=== PATIENT | male | born 1975 | race Caucasian/White ===

== ENCOUNTER 2016-03-08 08:00 | Outpatient (CLI) | payer MEDICARE, MEDICAID | END 2016-03-08 08:01 | disposition home or self-care (01) | DX: Z79.01 Long term (current) use of anticoagulants (principal) ==

== ENCOUNTER 2016-03-15 07:45 | Outpatient (CLI) | payer MEDICARE, MEDICAID | END 2016-03-15 07:46 | disposition home or self-care (01) | DX: Z79.01 Long term (current) use of anticoagulants (principal) ==

== ENCOUNTER 2016-04-05 09:10 | Outpatient (CLI) | payer MEDICARE, MEDICAID | END 2016-04-05 09:11 | disposition home or self-care (01) | DX: Z79.01 Long term (current) use of anticoagulants (principal) ==

== ENCOUNTER 2016-04-12 08:00 | Outpatient (CLI) | payer MEDICARE, MEDICAID | END 2016-04-12 08:01 | disposition home or self-care (01) | DX: Z79.01 Long term (current) use of anticoagulants (principal) ==

== ENCOUNTER 2016-04-19 08:46 | Outpatient (CLI) | payer MEDICARE, MEDICAID | END 2016-04-19 08:47 | disposition home or self-care (01) | DX: Z79.01 Long term (current) use of anticoagulants (principal) ==

== ENCOUNTER 2016-04-26 08:54 | Outpatient (CLI) | payer MEDICARE, MEDICAID | END 2016-04-26 08:55 | disposition home or self-care (01) | DX: Z79.01 Long term (current) use of anticoagulants (principal) ==

== ENCOUNTER 2016-05-10 09:23 | Outpatient (CLI) | payer MEDICARE, MEDICAID | END 2016-05-10 09:24 | disposition home or self-care (01) | DX: Z79.01 Long term (current) use of anticoagulants (principal) ==

== ENCOUNTER 2016-05-17 08:49 | Outpatient (CLI) | payer MEDICARE, MEDICAID | END 2016-05-17 08:50 | disposition home or self-care (01) | DX: Z79.01 Long term (current) use of anticoagulants (principal) ==

== ENCOUNTER 2016-05-31 08:00 | Outpatient (CLI) | payer MEDICARE, MEDICAID | END 2016-05-31 08:01 | disposition home or self-care (01) | DX: Z79.01 Long term (current) use of anticoagulants (principal) ==

== ENCOUNTER 2016-06-21 08:00 | Outpatient (CLI) | payer MEDICARE, MEDICAID | END 2016-06-21 23:59 | DX: Z79.01 Long term (current) use of anticoagulants (principal); Z95.0 Presence of cardiac pacemaker ==

== ENCOUNTER 2016-07-22 08:00 | Outpatient (CLI) | payer MEDICARE, MEDICAID | END 2016-07-22 08:01 | disposition home or self-care (01) | LOC: LAB.N 08:00 | PROVIDERS: ATTEND Nurse Practitioner Gerontology | DX: Z79.01 Long term (current) use of anticoagulants (principal) | CPT/HCPCS: 85610 ==

== ENCOUNTER 2016-08-01 10:30 | Outpatient (CLI) | payer MEDICARE, MEDICAID | END 2016-08-01 10:31 | disposition home or self-care (01) | LOC: LAB.N 10:30 | PROVIDERS: ATTEND Nurse Practitioner Gerontology | DX: Z79.01 Long term (current) use of anticoagulants (principal) | CPT/HCPCS: 85610 ==

== ENCOUNTER 2016-08-15 08:00 | Outpatient (CLI) | payer MEDICARE, MEDICAID | END 2016-08-15 08:01 | disposition home or self-care (01) | LOC: LAB.N 08:00 | PROVIDERS: ATTEND Nurse Practitioner Gerontology | DX: Z79.01 Long term (current) use of anticoagulants (principal) | CPT/HCPCS: 85610 ==

== ENCOUNTER 2016-09-09 08:00 | Outpatient (CLI) | payer MEDICARE, MEDICAID | END 2016-09-09 08:01 | disposition home or self-care (01) | LOC: LAB.N 08:00 | PROVIDERS: ATTEND Nurse Practitioner Gerontology | DX: Z79.01 Long term (current) use of anticoagulants (principal) | CPT/HCPCS: 85610 ==

== ENCOUNTER 2016-09-16 07:51 | Outpatient (CLI) | payer MEDICARE, MEDICAID | END 2016-09-16 07:52 | LOC: LAB.N 07:51 | PROVIDERS: ATTEND Nurse Practitioner Gerontology | DX: Z79.01 Long term (current) use of anticoagulants (principal) | CPT/HCPCS: 85610 ==

== ENCOUNTER 2016-09-30 08:50 | Outpatient (CLI) | payer MEDICARE, MEDICAID | END 2016-09-30 08:51 | disposition home or self-care (01) | LOC: LAB.N 08:50 | PROVIDERS: ATTEND Nurse Practitioner Gerontology | DX: Z79.01 Long term (current) use of anticoagulants (principal) | CPT/HCPCS: 85610 ==

== ENCOUNTER 2016-10-07 14:03 | Outpatient (CLI) | payer MEDICARE, MEDICAID | END 2016-10-07 14:04 | LOC: LAB.N 14:03 | PROVIDERS: ATTEND Nurse Practitioner Gerontology | DX: Z79.01 Long term (current) use of anticoagulants (principal) | CPT/HCPCS: 85610 ==

== ENCOUNTER 2016-10-14 08:00 | Outpatient (CLI) | payer MEDICARE, MEDICAID | END 2016-10-14 08:01 | disposition home or self-care (01) | LOC: LAB.N 08:00 | PROVIDERS: ATTEND Nurse Practitioner Gerontology | DX: Z79.01 Long term (current) use of anticoagulants (principal); Z95.0 Presence of cardiac pacemaker | CPT/HCPCS: 85610 ==

== ENCOUNTER 2016-10-28 07:35 | Outpatient (CLI) | payer MEDICARE, MEDICAID | END 2016-10-28 07:36 | LOC: LAB.N 07:35 | DX: Z79.01 Long term (current) use of anticoagulants (principal); Z95.0 Presence of cardiac pacemaker | CPT/HCPCS: 85610 ==

== ENCOUNTER 2016-11-01 06:59 | Outpatient (CLI) | payer MEDICARE, MEDICAID ==
[2016-11-01 08:17] LABS: BILIRUBIN,URINE NEGATIVE (NEGATIVE)
[2016-11-01 08:24] LABS: BASOPHILS # (AUTO) 0.1 10^3/uL (0.0-0.1); BASOPHILS % (AUTO) 1.3 %; EOSINOPHILS # (AUTO) 0.2 10^3/uL (0.0-0.7); EOSINOPHILS % (AUTO) 2.7 %; HCT - HEMATOCRIT 49.7 % (42.0-52.0); HGB - HEMOGLOBIN 16.9 g/dL (14.0-18.0); LYMPHOCYTES # (AUTO) 1.8 10^3/uL (1.5-3.5); LYMPHOCYTES % (AUTO) 30.2 %; MEAN CORPUSCULAR HEMOGLOBIN 29.4 pg (27.0-31.0); MEAN CORPUSCULAR VOLUME 86.3 fL (80.0-94.0); MONOCYTES # (AUTO) 0.5 10^3/uL (0.0-1.0); MONOCYTES % (AUTO) 8.7 %; NEUTROPHILS # (AUTO) 3.5 10^3/uL (1.5-6.6); NEUTROPHILS % (AUTO) 57.1 %; NUCLEATED RED BLOOD CELLS AUTO 0.1 /100WBC; RED BLOOD COUNT 5.76 10^6/uL (4.70-6.10); RED CELL DISTRIBUTION WIDTH 13.6 % (12.0-15.0); UNCORRECTED WHITE BLOOD COUNT 6.1 x10^3/uL; WHITE BLOOD COUNT 6.1 x10^3/uL (4.8-10.8)
[2016-11-01 08:45] LABS: BILIRUBIN,TOTAL 0.9 mg/dL (0.2-1.0); BUN - BLOOD UREA NITROGEN 17 mg/dL (6-20); CALCIUM 8.8 mg/dL (8.5-10.3); CARBON DIOXIDE - CO2 27 mmol/L (21-32); CHLORIDE 103 mmol/L (101-111); CHOL/HDL RATIO 4.9 (<5.0); CHOLESTEROL 181 mg/dL; CREATININE 0.9 mg/dL (0.6-1.2); GFR - MDRD 93 (>89); GLUCOSE 95 mg/dL (70-100); HDL CHOLESTEROL 37 mg/dL; LDL/HDL RATIO 3.1 (<3.6); POTASSIUM 4.1 mmol/L (3.5-5.0); SODIUM 138 mmol/L (135-145); TOTAL PROTEIN 7.6 g/dL (6.7-8.2); TRIGLYCERIDES 146 mg/dL; VLDL CHOLESTEROL 29 mg/dL
[2016-11-01 08:48] LABS: VBG PH 7.35 (7.31-7.41)
[2016-11-01 08:49] LABS: CALCIUM, IONIZED 1.15 mmol/L (1.15-1.33)
[2016-11-01 09:50] LABS: UA CHARGE (STRIP ONLY) YES
[2016-11-01 11:10] LABS: THYROID STIMULATING HORMONE 3.04 uIU/mL (0.34-5.60)
== END 2016-11-01 07:00 | disposition home or self-care (01) ==
LOC: LAB 06:59
DX: E66.01 Morbid (severe) obesity due to excess calories (principal); I10 Essential (primary) hypertension; F41.9 Anxiety disorder, unspecified; Z95.0 Presence of cardiac pacemaker; I82.90 Acute embolism and thrombosis of unspecified vein
CPT/HCPCS: 36415; 80053; 80061; 81001; 81003; 82330; 82607; 83735; 84425; 84443; 85025; 87086

== ENCOUNTER 2016-11-04 08:00 | Outpatient (CLI) | payer MEDICARE, MEDICAID | END 2016-11-04 08:01 | disposition home or self-care (01) | LOC: LAB.N 08:00 | PROVIDERS: ATTEND Nurse Practitioner Gerontology | DX: Z95.0 Presence of cardiac pacemaker (principal); Z79.01 Long term (current) use of anticoagulants | CPT/HCPCS: 85610 ==

== ENCOUNTER 2016-11-14 13:47 | Outpatient (CLI) | payer MEDICARE, MEDICAID | END 2016-11-14 13:48 | LOC: LAB.N 13:47 | PROVIDERS: ATTEND Nurse Practitioner Gerontology | DX: Z79.01 Long term (current) use of anticoagulants (principal); Z95.0 Presence of cardiac pacemaker | CPT/HCPCS: 85610 ==

== ENCOUNTER 2016-11-18 14:18 | Outpatient (CLI) | payer MEDICARE, MEDICAID | END 2016-11-18 14:19 | disposition home or self-care (01) | LOC: SC 14:18 | PROVIDERS: ATTEND Internal Medicine Pulmonary Disease | DX: G47.30 Sleep apnea, unspecified (principal); R06.83 Snoring | CPT/HCPCS: 99203; G0463; 99212 ==

== ENCOUNTER 2016-11-22 19:42 | Emergency (ER) | payer MEDICARE, MEDICAID ==
[2016-11-22 20:00] VITALS: BP 156/89
[2016-11-22 20:16] LABS: PH,URINE 5.5 PH (5.0-7.5)
[2016-11-22 20:19] LABS: BILIRUBIN,URINE NEGATIVE (NEGATIVE); UA w/ MICROSCOPIC CHARGE YES
[2016-11-22 20:28] LABS: UR CULTURE IF IND INDICATED; WBC,URINE >25 /HPF (0-3)
[2016-11-22] MEDS ORDERED: CIPROFLOXACIN 250 MG TABLET PO STA (20:37)
[2016-11-22] MEDS ORDERED: PHENAZOPYRIDINE 100 MG TABLET PO STA (20:37)
--- NOTE | 2016-11-22 20:39 | ED Physician Documentation ---
PD HPI MALE - Stated complaint Stated Complaint: MALE - Chief complaint Chief Complaint: General - History obtained from History obtained from: Patient, Family - History of Present Illness Timing - onset: Yesterday Timing - duration: Days (2) Timing - details: Gradual onset Pain level max: 5 Pain level now: 5 Associated symptoms: Dysuria, Urinary frequency. No: Hematuria, Discharge, Testiclar pain, Scrotal swelling, Abdominal pain PD HPI MALE CONTRIB FACTORS: Sexually active (same partner for 2+ years), Homosexual. No: Exposed to STD Similar symptoms before: Diagnosis (UTI) Recently seen: Not recently seen Review of Systems Constitutional: denies: Fever, Chills Ears: denies: Ear pain Nose: denies: Rhinorrhea / runny nose, Congestion Throat: denies: Sore throat Cardiac: denies: Chest pain / pressure Respiratory: denies: Cough GI: reports: Other (no pain with sitting or bowel movement). denies: Nausea, Vomiting, Constipation, Diarrhea : reports: Dysuria, Frequency, Hesitancy Skin: denies: Rash Musculoskeletal: denies: Neck pain, Back pain Neurologic: denies: Headache PD PAST MEDICAL HISTORY - Past Medical History Past Medical History: Yes Cardiovascular: Hypertension, Pulmonary embolism Other Past Medical History: blood disorder, heart burn - Past Surgical History Past Surgical History: Yes General: Cholecystectomy, Gastric surgery Cardiovascular: Pacemaker, Other - Present Medications Home Medications: Ambulatory Orders Medication Instructions Recorded Confirmed Omeprazole [PriLOSEC] 20 mg PO DAILY 07/01/15 11/22/16 Warfarin [Coumadin] 10 mg PO DAILY 07/01/15 11/22/16 amLODIPine [Norvasc] 5 mg PO DAILY 07/01/15 11/22/16 Ciprofloxacin HCl [Cipro] 500 mg PO BID #14 tablet 11/22/16 Hydrocodone/Acetaminophen 1 - 2 each PO Q6H PRN #14 tablet 11/22/16 [Hydrocodon-Acetaminophen 5-325] Phenazopyridine HCl [Pyridium] 200 mg PO TID PRN #6 tablet 11/22/16 - Allergies Allergies/Adverse Reactions: Allergies Allergy/AdvReac Type Severity Reaction Status Date / Time No Known Drug Allergies Allergy Verified 11/22/16 20:00 - Social History Does the pt smoke?: Yes Smoking Status: Current every day smoker Does the pt drink ETOH?: No Does the pt have substance abuse?: No - Immunizations Immunizations are current?: Yes - POLST Patient has POLST: No PD ED PE NORMAL - Vitals Vital signs reviewed: Yes - General General: Alert and oriented X 3, No acute distress, Well developed/nourished - HEENT HEENT: Moist mucous membranes - Neck Neck: Supple, no meningeal sign - Cardiac Cardiac: RRR, Strong equal pulses - Respiratory Respiratory: No respiratory distress, Clear bilaterally - Abdomen Abdomen: Soft, Non tender, Non distended - Back Back: No CVA TTP - Derm Derm: Warm and dry, No rash - Neuro Neuro: Alert and oriented X 3 - Psych Psych: Normal mood, Normal affect Results - Vitals Vitals: Vital Signs - 24 hr 11/22/16 19:56 Temperature 37.9 C H Heart Rate 104 H Respiratory 17 Rate Blood Pressure 156/89 H O2 Saturation 97 Oxygen O2 Source Room air - Labs Labs: Laboratory Tests 11/22/16 11/22/16 19:48 20:47 Whole Blood INR 2.4 H Urine Color DARK YELLOW Urine Clarity HAZY Urine pH 5.5 Ur Specific [place] 1.025 Urine Protein 30 H Urine Glucose (UA) NEGATIVE Urine Ketones NEGATIVE Urine Occult Blood LARGE H Urine Nitrite NEGATIVE Urine Bilirubin NEGATIVE Urine Urobilinogen 1 (NORMAL) Ur Leukocyte Esterase SMALL H Urine RBC TNTC H Urine WBC >25 H Ur Squamous Epith Cells FEW Squamous Urine Bacteria Few Urine Mucus Few Strands Ur Oval Fat Bodies RARE Ur Microscopic Review INDICATED Urine Culture Comments INDICATED PD MEDICAL DECISION MAKING - ED course Complexity details: reviewed results, re-evaluated patient, considered differential, d/w patient ED course: Patient is a 41-year-old gentleman who presents to the emergency department with what appears to be a UTI. Has a history of same. No evidence of prostatitis. No STD risk factors. No CVA tenderness. No back pain. No vomiting. Will place on ciprofloxacin and follow-up with his PCP. He is very well-appearing, nontoxic. Patient counseled regarding signs and symptoms for which I believe and urgent re-evaluation would be necessary. Patient with good understanding of and agreement to plan and is comfortable going home at this time This document was made in part using voice recognition software. While efforts are made to proofread this document, sound alike and grammatical errors may occur. Departure - Departure Disposition: 01 Home, Self Care Clinical Impression: UTI (urinary tract infection) Qualifiers: Urinary tract infection type: acute cystitis Hematuria presence: without hematuria Qualified Code(s): N30.00 - Acute cystitis without hematuria Condition: Good Instructions: ED UTI Cystitis Male Follow-Up: Ophelia Villavicencio ARNP [Primary Care Provider] - Within 1 week Prescriptions: Ciprofloxacin HCl [Cipro] 500 mg PO BID #14 tablet Hydrocodone/Acetaminophen [Hydrocodon-Acetaminophen 5-325] 1 - 2 each PO Q6H PRN #14 tablet PRN Reason: pain Phenazopyridine HCl [Pyridium] 200 mg PO TID PRN #6 tablet PRN Reason: dysuria Comments: Take all antibiotics until gone. Return if you worsen. The ciprofloxacin may effect your INR (warfarin level) and so this needs to be monitored every 2-3 days while on the antibiotic. Your blood pressure was elevated today on check in to the emergency department. This does not mean that you have hypertension, it is a common phenomenon to check into the emergency department and have elevated blood pressure. I recommend that you see your primary care physician within the week to have it rechecked when you're feeling better. Do not drink alcohol or drive while on narcotic pain medicine. Note that many narcotic pain relievers also contain tylenol/acetaminophen. Please ensure that your total dose of acetaminophen from all sources does not exceed 3 grams (3000mg) per day. You may constipated on this medication, take a stool softener such as "Colace" twice a day while you are on it. Also recommend a [id number]-khu-pwecytt laxative such as senna or MiraLAX any day that you do not have a bowel movement. If you received narcotic pain medication in the emergency department, do not drive or operate machinery for the next 24 hours. Discharge Date/Time: 11/22/16 21:01
[2016-11-22] MEDS ORDERED: PHENAZOPYRIDINE 100 MG TABLET PO ONE (20:45)
[2016-11-22] MEDS ORDERED: CIPROFLOXACIN 250 MG TABLET PO ONE (20:45)
== END 2016-11-22 21:01 | disposition home or self-care (01) ==
LOC: ED 19:42
DX: N30.00 Acute cystitis without hematuria (principal); I10 Essential (primary) hypertension; F17.200 Nicotine dependence, unspecified, uncomplicated; Z86.711 Personal history of pulmonary embolism; Z79.01 Long term (current) use of anticoagulants; Z95.0 Presence of cardiac pacemaker
CPT/HCPCS: 81001; 85610; 87086; 99283; A9270; 81003

== ENCOUNTER 2016-11-26 08:00 | Outpatient (CLI) | payer MEDICARE, MEDICAID | END 2016-11-26 08:01 | disposition home or self-care (01) | LOC: LAB.N 08:00 | PROVIDERS: ATTEND Nurse Practitioner Gerontology | DX: Z79.01 Long term (current) use of anticoagulants (principal); Z95.0 Presence of cardiac pacemaker | CPT/HCPCS: 85610 ==

== ENCOUNTER 2016-11-29 13:16 | Outpatient (CLI) | payer MEDICARE, MEDICAID | END 2016-11-29 13:17 | disposition home or self-care (01) | LOC: LAB.N 13:16 | PROVIDERS: ATTEND Nurse Practitioner Gerontology | DX: Z79.01 Long term (current) use of anticoagulants (principal); Z95.0 Presence of cardiac pacemaker | CPT/HCPCS: 85610 ==

== ENCOUNTER 2016-12-02 11:32 | Outpatient (CLI) | payer MEDICARE, MEDICAID | END 2016-12-02 11:33 | disposition home or self-care (01) | LOC: LAB.N 11:32 | PROVIDERS: ATTEND Nurse Practitioner Gerontology | DX: Z79.01 Long term (current) use of anticoagulants (principal); Z95.0 Presence of cardiac pacemaker | CPT/HCPCS: 85610 ==

== ENCOUNTER 2016-12-10 08:40 | Outpatient (CLI) | payer MEDICARE, MEDICAID | END 2016-12-10 08:41 | disposition home or self-care (01) | LOC: LAB.N 08:40 | PROVIDERS: ATTEND Nurse Practitioner Gerontology | DX: Z79.01 Long term (current) use of anticoagulants (principal); Z95.0 Presence of cardiac pacemaker | CPT/HCPCS: 85610 ==

== ENCOUNTER 2016-12-13 07:46 | Outpatient (CLI) | payer MEDICARE, MEDICAID | END 2016-12-13 07:47 | disposition home or self-care (01) | LOC: LAB.N 07:46 | PROVIDERS: ATTEND Nurse Practitioner Gerontology | DX: Z79.01 Long term (current) use of anticoagulants (principal); Z95.0 Presence of cardiac pacemaker | CPT/HCPCS: 85610 ==

== ENCOUNTER 2017-01-03 08:00 | Outpatient (CLI) | payer MEDICARE, MEDICAID | END 2017-01-03 08:01 | disposition home or self-care (01) | LOC: LAB.N 08:00 | PROVIDERS: ATTEND Nurse Practitioner Gerontology | DX: Z79.01 Long term (current) use of anticoagulants (principal); Z95.0 Presence of cardiac pacemaker | CPT/HCPCS: 85610 ==

== ENCOUNTER 2017-01-13 11:50 | Outpatient (CLI) | payer MEDICARE, MEDICAID | END 2017-01-13 11:51 | LOC: LAB.N 11:50 | PROVIDERS: ATTEND Nurse Practitioner Gerontology | DX: Z79.01 Long term (current) use of anticoagulants (principal); Z95.0 Presence of cardiac pacemaker | CPT/HCPCS: 85610 ==

== ENCOUNTER 2017-01-20 08:00 | Outpatient (CLI) | payer MEDICARE, MEDICAID | END 2017-01-20 08:01 | disposition home or self-care (01) | LOC: LAB.N 08:00 | PROVIDERS: ATTEND Nurse Practitioner Gerontology | DX: Z79.01 Long term (current) use of anticoagulants (principal); Z95.0 Presence of cardiac pacemaker | CPT/HCPCS: 85610 ==

== ENCOUNTER 2017-01-27 09:17 | Outpatient (CLI) | payer MEDICARE, MEDICAID | END 2017-01-27 09:18 | disposition home or self-care (01) | LOC: LAB.N 09:17 | PROVIDERS: ATTEND Nurse Practitioner Gerontology | DX: Z79.01 Long term (current) use of anticoagulants (principal); Z95.0 Presence of cardiac pacemaker | CPT/HCPCS: 85610 ==

== ENCOUNTER 2017-02-03 10:13 | Outpatient (CLI) | payer MEDICARE, MEDICAID | END 2017-02-03 10:14 | disposition home or self-care (01) | LOC: SC 10:13 | PROVIDERS: ATTEND Internal Medicine Pulmonary Disease | DX: G47.33 Obstructive sleep apnea (adult) (pediatric) (principal); R09.02 Hypoxemia | CPT/HCPCS: 99213; G0463; 99212 ==

== ENCOUNTER 2017-02-12 13:26 | Outpatient (CLI) | payer MEDICARE, MEDICAID | END 2017-02-12 13:27 | disposition home or self-care (01) | LOC: LAB.N 13:26 | PROVIDERS: ATTEND Nurse Practitioner Gerontology | DX: Z79.01 Long term (current) use of anticoagulants (principal); Z95.0 Presence of cardiac pacemaker | CPT/HCPCS: 85610 ==

== ENCOUNTER 2017-03-13 13:21 | Outpatient (CLI) | payer MEDICARE, MEDICAID | END 2017-03-13 13:22 | disposition home or self-care (01) | LOC: LAB.N 13:21 | PROVIDERS: ATTEND Nurse Practitioner Gerontology | DX: Z79.01 Long term (current) use of anticoagulants (principal); Z95.0 Presence of cardiac pacemaker | CPT/HCPCS: 85610 ==

== ENCOUNTER 2017-03-31 14:11 | Outpatient (CLI) | payer MEDICARE, MEDICAID | END 2017-03-31 14:12 | disposition home or self-care (01) | LOC: SC 14:11 | PROVIDERS: ATTEND Internal Medicine Pulmonary Disease | DX: G47.33 Obstructive sleep apnea (adult) (pediatric) (principal) | CPT/HCPCS: 99213; G0463; 99212 ==

== ENCOUNTER 2017-04-15 08:26 | Outpatient (CLI) | payer MEDICARE, MEDICAID | END 2017-04-15 08:27 | LOC: LAB.N 08:26 | PROVIDERS: ATTEND Nurse Practitioner Gerontology | DX: Z95.0 Presence of cardiac pacemaker (principal); Z79.01 Long term (current) use of anticoagulants | CPT/HCPCS: 85610 ==

== ENCOUNTER 2017-05-09 16:15 | Outpatient (CLI) | payer MEDICARE, MEDICAID | END 2017-05-09 16:30 | disposition home or self-care (01) | LOC: RT.N 16:15 | PROVIDERS: ATTEND Nurse Practitioner Gerontology | DX: Z01.810 Encounter for preprocedural cardiovascular examination (principal) | CPT/HCPCS: 93005 ==

== ENCOUNTER 2018-06-01 14:29 | Outpatient (CLI) | payer MEDICARE, MEDICAID | END 2018-06-01 23:59 | disposition home or self-care (01) | LOC: RT.N 14:29 | PROVIDERS: ATTEND Nurse Practitioner Gerontology | DX: I10 Essential (primary) hypertension (principal) ==

== ENCOUNTER 2018-06-09 08:00 | Outpatient (CLI) | payer MEDICARE, MEDICAID ==
[2018-06-09 12:44] LABS: ALBUMIN 3.7 g/dL (3.2-5.5); ALKALINE PHOSPHATASE 94 IU/L (42-121); ALT ALANINE AMINOTRANSFERASE 27 IU/L (10-60); AST ASPARTATE AMINOTRANSFERASE 24 IU/L (10-42); BILIRUBIN,TOTAL 0.8 mg/dL (0.2-1.0); BUN - BLOOD UREA NITROGEN 17 mg/dL (6-20); CALCIUM 8.8 mg/dL (8.5-10.3); CARBON DIOXIDE - CO2 30 mmol/L (21-32); CHLORIDE 101 mmol/L (101-111); CHOL/HDL RATIO 4.4 (<5.0); CHOLESTEROL 175 mg/dL; CREATININE 0.8 mg/dL (0.6-1.2); GFR - MDRD 105 (>89); GLUCOSE 102 mg/dL (70-100); HDL CHOLESTEROL 40 mg/dL; LDL CHOLESTEROL,CALCULATED 112 mg/dL; LDL/HDL RATIO 2.8 (<3.6); SODIUM 139 mmol/L (135-145); TOTAL PROTEIN 7.4 g/dL (6.7-8.2); VLDL CHOLESTEROL 23 mg/dL
[2018-06-09 13:11] LABS: BASOPHILS # (AUTO) 0.1 10^3/uL (0.0-0.1); BASOPHILS % (AUTO) 1.1 %; EOSINOPHILS # (AUTO) 0.2 10^3/uL (0.0-0.7); EOSINOPHILS % (AUTO) 4.1 %; HGB - HEMOGLOBIN 16.9 g/dL (14.0-18.0); LYMPHOCYTES # (AUTO) 1.7 10^3/uL (1.5-3.5); LYMPHOCYTES % (AUTO) 29.5 %; MEAN CORPUSCULAR HEMOGLOBIN 29.2 pg (27.0-31.0); MEAN CORPUSCULAR HGB CONC 33.5 g/dL (32.0-36.0); MEAN CORPUSCULAR VOLUME 87.1 fL (80.0-94.0); MEAN PLATELET VOLUME 8.2 fL (7.4-11.4); MONOCYTES # (AUTO) 0.5 10^3/uL (0.0-1.0); MONOCYTES % (AUTO) 9.2 %; NEUTROPHILS # (AUTO) 3.3 10^3/uL (1.5-6.6); NEUTROPHILS % (AUTO) 56.1 %; PLT - PLATELET COUNT 193 10^3/uL (130-450); RED BLOOD COUNT 5.78 10^6/uL (4.70-6.10); RED CELL DISTRIBUTION WIDTH 13.7 % (12.0-15.0); WHITE BLOOD COUNT 5.8 x10^3/uL (4.8-10.8)
== END 2018-06-09 08:01 | disposition home or self-care (01) ==
LOC: LAB.N 08:00
PROVIDERS: ATTEND Nurse Practitioner Gerontology
DX: I10 Essential (primary) hypertension (principal); Z79.899 Other long term (current) drug therapy
CPT/HCPCS: 36415; 80053; 80061; 83721; 84443; 85025

== ENCOUNTER 2018-07-23 15:10 | Emergency (ER) | payer MEDICARE, MEDICAID ==
[2018-07-23] MEDS ORDERED: diphenhydrAMINE 25 MG CAPSULE PO STA (17:06)
--- NOTE | 2018-07-23 17:20 | ED Physician Documentation ---
PD HPI SKIN - Stated complaint Stated Complaint: HIVES - Chief complaint Chief Complaint: Allergic Rx - History obtained from History obtained from: Patient - History of Present Illness Timing - onset: Yesterday Timing - details: Still present Location: Abdomen, Back, RUE, LUE, RLE, LLE Quality / character: Itchy, Discolored Contributing factors: Unknown Similar symptoms before: Has not had sx before - Additional information Additional information: The patient is a 43-year-old morbidly obese male who presents with pruritic rash involving his trunk and proximal extremities. The rash started yesterday and has become more pronounced today. He denies fever, sore throat, or difficulty breathing. He is unaware of exposure to new foods, medications, or unknown substances. He has no history of similar symptoms in the past. Significant medical history includes gastric bypass surgery 2 weeks ago. He has been on a mostly liquid diet since the surgery. Review of Systems Constitutional: denies: Fever Nose: denies: Congestion Throat: denies: Sore throat Cardiac: denies: Chest pain / pressure Respiratory: denies: Dyspnea, Cough GI: denies: Abdominal Pain, Nausea, Vomiting : denies: Dysuria Skin: reports: Rash Musculoskeletal: denies: Extremity swelling Neurologic: denies: Focal weakness, Numbness, Headache PD PAST MEDICAL HISTORY - Past Medical History Cardiovascular: Hypertension, Pulmonary embolism, Other Respiratory: Pneumonia, Sleep apnea, CPAP use Endocrine/Autoimmune: Type 2 diabetes : None HEENT: None Psych: None Musculoskeletal: None Derm: None - Past Surgical History Past Surgical History: Yes General: Cholecystectomy, Gastric surgery Cardiovascular: Pacemaker, Other - Present Medications Home Medications: Ambulatory Orders Medication Instructions Recorded Confirmed Omeprazole [PriLOSEC] 20 mg PO DAILY 07/01/15 05/06/17 amLODIPine [Norvasc] 5 mg PO DAILY 07/01/15 05/06/17 Aspirin Chewable [[place] 81 mg DAILY 07/23/18 07/23/18 Aspirin] Triamcinolone 0.1% Cream [Kenalog 1 - 2 applic TOP BID #4 tube 07/23/18 0.1% Cream] - Allergies Allergies/Adverse Reactions: Allergies Allergy/AdvReac Type Severity Reaction Status Date / Time No Known Drug Allergies Allergy Verified 07/23/18 15:32 - Social History Does the pt smoke?: Yes Smoking Status: Current every day smoker Does the pt drink ETOH?: No Does the pt have substance abuse?: No - Immunizations Immunizations are current?: Yes - POLST Patient has POLST: No PD ED PE NORMAL - Vitals Vital signs reviewed: Yes (Borderline diastolic hypertension.) - General General: Alert and oriented X 3, Well developed/nourished, Other (Morbidly obe se.) - HEENT HEENT: Atraumatic, Pharynx benign - Neck Neck: Supple, no meningeal sign, No adenopathy - Cardiac Cardiac: RRR - Respiratory Respiratory: No respiratory distress, Clear bilaterally - Abdomen Abdomen: Soft, Non tender - Back Back: No CVA TTP - Derm Derm: Other (There is an urticarial rash involving the trunk and proximal extremities bilaterally. A [place] patch is noted over the left scapular region.) - Extremities Extremities: No tenderness to palpate - Neuro Neuro: Alert and oriented X 3, No motor deficit, No sensory deficit, Normal speech Results - Vitals Vitals: Oxygen O2 Source Room air PD MEDICAL DECISION MAKING - ED course Complexity details: considered differential, d/w patient, d/w family ED course: The patient's presentation is most consistent with pityriasis rosea, with the typical herald patch. This does not appear to be an acute allergic reaction. I discussed with him and his female process helper diagnosis, symptomatic treatment and outpatient follow-up, as well as potentially worrisome signs or symptoms that should prompt reevaluation in the emergency department. He is being discharged with prescription for 0.1% triamcinolone cream. Departure - Departure Disposition: 01 Home, Self Care Clinical Impression: Pityriasis rosea Condition: Stable Instructions: ED Pityriasis Rosea Follow-Up: Ophelia Villavicencio ARNP [Credentialed Staff Provider] - Prescriptions: Triamcinolone 0.1% Cream [Kenalog 0.1% Cream] 1 - 2 applic TOP BID #4 tube Comments: Apply 0.1% triamcinolone cream to the affected areas twice daily if needed for itching. You can use Benadryl orally if needed for itching. Follow-up with your primary physician or return to the emergency department if you develop increasing rash or itching, or otherwise worsening symptoms. Discharge Date/Time: 07/23/18 17:34
[2018-07-23 17:34] VITALS: BP 132/84
== END 2018-07-23 17:34 | disposition home or self-care (01) ==
LOC: ED 15:10
DX: L42 Pityriasis rosea (principal); Z98.84 Bariatric surgery status; E66.01 Morbid (severe) obesity due to excess calories; Z68.43 Body mass index [BMI] 50.0-59.9, adult; I10 Essential (primary) hypertension; E11.9 Type 2 diabetes mellitus without complications; Z79.82 Long term (current) use of aspirin; F17.200 Nicotine dependence, unspecified, uncomplicated
CPT/HCPCS: 99283

== ENCOUNTER 2020-02-01 12:20 | Outpatient (CLI) | payer MEDICARE, MEDICAID | END 2020-02-01 23:59 | disposition home or self-care (01) | LOC: LAB.N 12:20 | PROVIDERS: ATTEND Family Medicine | DX: R05 Cough (principal); Z20.828 Contact with and (suspected) exposure to other viral communicable diseases ==

== ENCOUNTER 2020-02-01 12:36 | Outpatient (CLI) | payer MEDICARE, MEDICAID ==
--- NOTE | 2020-02-01 13:04 | XRAY Report ---
PROCEDURE: Chest 2 View X-Ray INDICATIONS: Persistent cough TECHNIQUE: 2 view(s) of the chest. COMPARISON: None. FINDINGS: Surgical changes and devices: Left chest wall single lead cardiac pacing device. Median sternotomy ch anges. Lungs and pleura: No pleural effusions or pneumothorax. Increased interstitial markings in both lung s. No focal consolidation. Mediastinum: Mediastinal contours are normal. Heart size is at the upper limits of normal. Bones and chest wall: No suspicious bony abnormalities. Soft tissues appear unremarkable. IMPRESSION: Heart size at the upper limits of normal with mildly increased interstitial markings in both lungs. Findings may represent mild cardiogenic pulmonary edema. Reviewed by: Nba Juan MD on 02/01/2020 12:03 PM [facility] Approved by: Nba Juan MD on 02/01/2020 12:03 PM [facility] Station ID: [id number]
== END 2020-02-01 23:59 | disposition home or self-care (01) ==
LOC: DI.N 12:36
PROVIDERS: ATTEND Family Medicine
DX: R05 Cough (principal); Z20.828 Contact with and (suspected) exposure to other viral communicable diseases
CPT/HCPCS: 71046; 87275; 87276; U0004

== ENCOUNTER 2023-04-03 21:53 | Outpatient (CLI) | payer MEDICARE, MEDICAID | END 2023-04-03 21:54 | disposition short-term general hospital (02) | LOC: EMS 21:53 | DX: M25.471 Effusion, right ankle (principal); W10.8XXA Fall (on) (from) other stairs and steps, initial encounter; Y92.008 Other place in unspecified non-institutional (private) residence as the place of occurrence of the external cause; R53.1 Weakness; E66.01 Morbid (severe) obesity due to excess calories | CPT/HCPCS: A0425; A0429 ==

== ENCOUNTER 2023-07-28 10:55 | Outpatient (CLI) | payer MEDICARE, MEDICAID ==
[2023-07-28 17:56] LABS: CREATININE 0.8 mg/dL (0.6-1.3); POTASSIUM 3.8 mmol/L (3.5-4.5)
== END 2023-07-28 10:56 | disposition home or self-care (01) ==
LOC: LAB.N 10:55
PROVIDERS: ATTEND Internal Medicine
DX: I50.32 Chronic diastolic (congestive) heart failure (principal)
CPT/HCPCS: 36415; 80048